=== PATIENT | female | born 1995 | race Caucasian/White ===

== ENCOUNTER 2018-01-16 21:42 | Emergency (ER) | payer MEDICAID, OTHER ==
[2018-01-17 01:43] LABS: ADD MAN DIFF? NO
[2018-01-17 01:48] LABS: WHITE BLOOD COUNT 11.5 10^3/ul (4.8-10.8)
[2018-01-17 01:48] LABS: BASOPHILS % 0.2 % (0.0-2.0); EOSINOPHILS # 0.7 10^3/ul (0.0-0.5); HEMATOCRIT 37.2 % (37.0-47.0); HEMOGLOBIN 12.1 g/dl (12.0-16.0); LYMPHOCYTES # 4.6 10^3/ul (0.8-2.9); LYMPHOCYTES % 40.1 % (15.0-51.0); MEAN CORPUSCULAR HEMOGLOBIN 27.7 pg (29.0-33.0); MEAN CORPUSCULAR HGB CONC 32.5 g/dl (32.0-37.0); MEAN CORPUSCULAR VOLUME 85.1 fl (82.0-101.0); MONOCYTE # 0.6 10^3/ul (0.3-0.9); MONOCYTES % 4.8 % (0.0-11.0); NEUTROPHIL # 5.6 10^3/ul (1.6-7.5); NEUTROPHILS % 48.6 % (39.0-77.0); PLATELET COUNT 355 10^3/UL (140-415); RED BLOOD COUNT 4.37 10^6/ul (4.20-5.40)
[2018-01-17 04:26] LABS: UR COLOR YELLOW (YELLOW)
[2018-01-17 04:27] LABS: UR CLARITY CLOUDY (CLEAR); UR SPECIFIC GRAVITY (Dip) 1.015 (1.003-1.030); URINE SPECIFIC GRAVITY (Dip) 1.015 (1.003-1.030)
[2018-01-17 04:28] LABS: ADD UMIC YES; UR BILIRUBIN (Dip) NEGATIVE (NEGATIVE); UR BLOOD (Dip) NEGATIVE (NEGATIVE); UR GLUCOSE (Dip) NEGATIVE (NEGATIVE); UR KETONES (Dip) NEGATIVE (NEGATIVE); UR LEUKOCYTE ESTERASE (Dip) 1+ Leu/ul (NEGATIVE); UR NITRITE (Dip) NEGATIVE (NEGATIVE); UR TOTAL PROTEIN (Dip) NEGATIVE (NEGATIVE); UR UROBILINOGEN (Dip) 0.2 E.U./dL mg/dL (NEGATIVE); URINE RBCS 0-2 /HPF (0)
[2018-01-17 04:29] LABS: UR BACTERIA FEW /HPF (NONE SEEN); UR SQUAMOUS EPITHELIAL CELL FEW /HPF (FEW)
== END 2018-01-17 05:10 | disposition home or self-care (01) ==
LOC: FTE 21:42
DX: O23.11 Infections of bladder in pregnancy, first trimester (principal); R10.2 Pelvic and perineal pain; R40.2412 Glasgow coma scale score 13-15, at arrival to emergency department; Z3A.01 Less than 8 weeks gestation of pregnancy
CPT/HCPCS: 36415; 76801; 81001; 84702; 85025; 86900; 86901; 99284-25

== ENCOUNTER 2018-08-19 17:04 | Outpatient (CLI) | payer MEDICAID | END 2018-08-19 21:15 | disposition home or self-care (01) | LOC: OBT 17:04 → L-D 17:05 → OBT 21:15 | DX: O36.5930 Maternal care for other known or suspected poor fetal growth, third trimester, not applicable or unspecified (principal); Z3A.37 37 weeks gestation of pregnancy | CPT/HCPCS: 76818 ==

== ENCOUNTER 2018-08-29 08:41 | Inpatient (IN) | payer MEDICAID ==
[2018-08-29] MEDS ORDERED: OXYTOCIN 30 UNITS/LR 500 ML IV ×2 (09:30→18:30)
[2018-08-29] MEDS ORDERED: BUTORPHANOL 2 MG INJ IV (09:30)
[2018-08-29] MEDS ORDERED: CARBOPROST 250 MCG INJ IM ×2 (09:30→18:30)
[2018-08-29] MEDS ORDERED: LIDOCAINE 1% (MPF) 30 ML INJ INJ (09:30)
[2018-08-29] MEDS ORDERED: BUTORPHANOL 1 MG INJ IV (09:30)
[2018-08-29] MEDS ORDERED: METHYLERGONOVINE 0.2 MG INJ IM ×2 (09:30→18:30)
[2018-08-29] MEDS ORDERED: MISOPROSTOL 200 MCG TAB PR ×2 (09:30→18:30)
[2018-08-29 09:59] LABS: RUPTURE FETAL MEMBRANES POSITIVE (NEGATIVE)
[2018-08-29 11:15] LABS: ADD MAN DIFF? NO
[2018-08-29 11:19] LABS: WHITE BLOOD COUNT 11.6 10^3/ul (4.8-10.8)
[2018-08-29 11:19] LABS: BASOPHILS % 0.3 % (0.0-2.0); EOSINOPHILS # 0.1 10^3/ul (0.0-0.5); EOSINOPHILS % 1.1 % (0.0-7.0); HEMATOCRIT 36.5 % (37.0-47.0); HEMOGLOBIN 11.6 g/dl (12.0-16.0); LYMPHOCYTES % 17.4 % (15.0-51.0); MEAN CORPUSCULAR HEMOGLOBIN 26.7 pg (29.0-33.0); MEAN CORPUSCULAR HGB CONC 31.8 g/dl (32.0-37.0); MEAN CORPUSCULAR VOLUME 83.9 fl (82.0-101.0); MEAN PLATELET VOLUME 10.6 fl (7.4-10.4); MONOCYTE # 0.4 10^3/ul (0.3-0.9); MONOCYTES % 3.5 % (0.0-11.0); NEUTROPHIL # 8.9 10^3/ul (1.6-7.5); PLATELET COUNT 314 10^3/UL (140-415); RED BLOOD COUNT 4.35 10^6/ul (4.20-5.40); RED CELL DISTRIBUTION WIDTH 14.6 % (11.5-14.5)
[2018-08-29] MEDS: LACTATED RINGER'S 1,000 ML IV ×2 (11:27→17:12)
[2018-08-29 11:37] LABS: INR 0.95; PROTIME 12.8 Sec (11.9-14.9)
[2018-08-29 11:38] LABS: PARTIAL THROMBOPLASTIN TIME 29.2 Sec (23.0-35.0)
[2018-08-29] MEDS: OXYTOCIN 30 UNITS/LR 500 ML IV ×2 (15:16→15:34)
[2018-08-29 16:53] LABS: RAPID PLASMA REAGIN NONREACTIVE (NR)
[2018-08-29] MEDS ORDERED: ZOLPIDEM 5 MG TAB PO (18:30)
[2018-08-29] MEDS ORDERED: OXYCODONE/ASPIRIN (4.88/325) TAB PO ×2 (18:30)
[2018-08-29] MEDS: WITCH HAZEL/GLYCERIN PAD PR (18:55)
[2018-08-29] MEDS: BENZOCAINE 20% 56 ML SPRAY TOP (18:55)
[2018-08-29] MEDS: SENNA/DOCUSATE NA (8.6MG/50MG) TAB PO (20:51)
[2018-08-30] MEDS: IBUPROFEN 600 MG TAB PO ×4 (00:17→18:04)
[2018-08-30 05:25] LABS: WHITE BLOOD COUNT 11.9 10^3/ul (4.8-10.8)
[2018-08-30 05:25] LABS: ADD MAN DIFF? NO; BASOPHILS % 0.2 % (0.0-2.0); EOSINOPHILS # 0.5 10^3/ul (0.0-0.5); EOSINOPHILS % 4.2 % (0.0-7.0); HEMATOCRIT 33.1 % (37.0-47.0); HEMOGLOBIN 10.7 g/dl (12.0-16.0); LYMPHOCYTES # 3.1 10^3/ul (0.8-2.9); LYMPHOCYTES % 25.9 % (15.0-51.0); MEAN CORPUSCULAR HEMOGLOBIN 26.8 pg (29.0-33.0); MEAN CORPUSCULAR HGB CONC 32.3 g/dl (32.0-37.0); MEAN PLATELET VOLUME 10.5 fl (7.4-10.4); MONOCYTE # 0.6 10^3/ul (0.3-0.9); MONOCYTES % 4.6 % (0.0-11.0); NEUTROPHIL # 7.7 10^3/ul (1.6-7.5); NEUTROPHILS % 64.7 % (39.0-77.0); PLATELET COUNT 318 10^3/UL (140-415); RED BLOOD COUNT 3.99 10^6/ul (4.20-5.40); RED CELL DISTRIBUTION WIDTH 14.6 % (11.5-14.5)
[2018-08-30] MEDS: SENNA/DOCUSATE NA (8.6MG/50MG) TAB PO (10:06)
[2018-08-30] MEDS: LANOLIN HPA 1 PKT TOP (10:47)
[2018-08-31] MEDS ORDERED: DIPHTH/TET/ACEL PERTUSS (ADULT) 0.5 ML VIAL IM* (09:00)
== END 2018-08-30 18:50 | disposition home or self-care (01) | DRG 807 ==
LOC: OBT 08:41 → L-D 08:41 → OBT 09:48 → L-D 09:30 → MS1 18:25
PROVIDERS: Obstetrics & Gynecology
PROC: 10E0XZZ Delivery of Products of Conception, External Approach (ICD-10-PCS; principal; 2018-08-29)
PROC: 0HQ9XZZ Repair Perineum Skin, External Approach (ICD-10-PCS; 2018-08-29)
PROC: 4A1HXCZ Monitoring of Products of Conception, Cardiac Rate, External Approach (ICD-10-PCS; 2018-08-29)
DX: O70.0 First degree perineal laceration during delivery (principal); Z37.0 Single live birth; Z3A.38 38 weeks gestation of pregnancy
CPT/HCPCS: 84112; 85025; 85610; 85730; 86592; 86850; 86900; 86901